=== PATIENT | male | born 2000 ===

== ENCOUNTER → 2022-06-03 | Outpatient (CLI) | payer BC | END | disposition home or self-care (01) | LOC: LAB 12:13 → LAB SHORT 12:13 | DX: J03.90 Acute tonsillitis, unspecified (principal) | CPT/HCPCS: 87081 ==

== ENCOUNTER → 2022-10-15 | Outpatient (CLI) | payer BC | LOC: LAB SHORT 08:45 → LAB 08:45 → EDSTATUS 10:23 | DX: J02.9 Acute pharyngitis, unspecified (principal) | CPT/HCPCS: 87081 ==